=== PATIENT | female | born 1960 | race African-American/Black ===

== ENCOUNTER 2018-11-16 13:37 | Emergency (ER) | payer MEDICAID ==
[~2018-11-16] VITALS: Ht 172.7 cm; Wt 82.0 kg
[2018-11-16] MEDS ORDERED: HYDROCODONE/ACETAMINOPHEN 5/325MG TABLET PO ONE (15:00)
[2018-11-16 15:05] VITALS: BP 129/96
== END 2018-11-16 15:28 | disposition home or self-care (01) ==
LOC: ER 13:37
DX: B02.9 Zoster without complications (principal)
CPT/HCPCS: 99283

== ENCOUNTER 2021-10-24 12:46 | Inpatient (IN) | payer MEDICAID ==
[~2021-10-24] VITALS: Ht 182.9 cm; Wt 115.2 kg
[2021-10-24 17:39] LABS: BASOPHILS % 0.9 % (0.0-2.0); EOSINOPHILS % 1.4 % (0.0-5.0); HEMATOCRIT. 48.5 % (36.0-48.0); HEMOGLOBIN. 15.4 g/dL (12.0-16.0); MEAN CORPUSCULAR HEMOGLOBIN 28.7 pg (28.0-32.0); MEAN CORPUSCULAR VOLUME 90.2 fL (81.0-99.0); MEAN PLATELET VOLUME 9.4 fl (7.4-10.4); MONOCYTES % 6.8 % (2.0-8.0); NEUTROPHILS % 56.9 % (40.0-76.0); PLATELET 255 x1000/uL (130-400); RED BLOOD CELL COUNT 5.38 mill/uL (4.2-5.4); RED CELL DISTRIBUTION WIDTH 14.5 % (11.6-14.6)
[2021-10-24 17:49] LABS: CHLORIDE 96 mEq/L (98-107)
[2021-10-24 17:52] LABS: CLARITY URINE CLEAR (CLEAR); COLOR URINE YELLOW (YELLOW); KETONES URINE TRACE (NEGATIVE); LEUKOCYTE ESTERASE URINE NEGATIVE (NEGATIVE); NITRITE URINE NEGATIVE (NEGATIVE); OCCULT BLOOD URINE TRACE (NEGATIVE); PROTEIN URINE NEGATIVE (NEGATIVE); SPECIFIC GRAVITY URINE 1.042 (1.005-1.030); UROBILINOGEN URINE 0.2 E.U./dL (0.2-1.0)
[2021-10-24 17:57] LABS: ETHANOL BLOOD < 10 mg/dL
[2021-10-24 18:08] LABS: *AMPHETAMINES SCREEN URINE NEGATIVE (NEGATIVE); *BARBITURATES SCREEN URINE NEGATIVE (NEGATIVE); *BENZODIAZEPINES SCREEN URINE NEGATIVE (NEGATIVE); *COCAINE SCREEN URINE NEGATIVE (NEGATIVE); CANNABINOID URINE SCREEN NEGATIVE (NEGATIVE); METHADONE URINE SCREEN NEGATIVE (NEGATIVE); OPIATES URINE SCREEN NEGATIVE (NEGATIVE); PHENCYCLIDINE URINE SCREEN NEGATIVE (NEGATIVE)
[2021-10-24] MEDS ORDERED: INSULIN REGULAR (HUMULIN R) 300UNITS/3ML VIAL SUBCUT NR (21:09)
[2021-10-25] MEDS ORDERED: INSULIN REGULAR (HUMULIN R) 300UNITS/3ML VIAL SUBCUT NR
[2021-10-25] MEDS ORDERED: DEXTROSE 50% WATER 50ML SYRINGE IV PRN (00:15)
[2021-10-25] MEDS: BLOOD SUGAR DIAGNOSTIC STRIP TEST SCH ×4 (06:52→21:13)
[2021-10-25] MEDS: INSULIN LISPRO (MEDIUM DOSE) 100 UNITS/ML SUBCUT SCH ×5 (06:55→21:22)
[2021-10-25] MEDS ORDERED: ONDANSETRON HCL 4MG/2ML INJ IV PRN (09:15)
[2021-10-25] MEDS ORDERED: ACETAMINOPHEN 325MG TABLET PO PRN (09:15)
[2021-10-25] MEDS: INSULIN GLARGINE 100 UNITS/ML SUBCUT SCH ×2 (10:00→22:33)
[2021-10-25 12:00] VITALS: BP 156/85
[2021-10-25 14:14] VITALS: BP 124/71
[2021-10-25 16:20] VITALS: BP 124/71
[2021-10-25 20:00] VITALS: BP 150/94
[2021-10-26] VITALS: BP 123/81
[2021-10-26 04:00] VITALS: BP 140/83
[2021-10-26] MEDS: BLOOD SUGAR DIAGNOSTIC STRIP TEST SCH ×4 (07:20→21:14)
[2021-10-26] MEDS: INSULIN LISPRO (MEDIUM DOSE) 100 UNITS/ML SUBCUT SCH ×5 (07:50→22:59)
[2021-10-26 08:00] VITALS: BP 150/92
[2021-10-26] MEDS: INSULIN GLARGINE 100 UNITS/ML SUBCUT SCH ×2 (10:27→21:15)
[2021-10-26 16:00] VITALS: BP 132/74
[2021-10-26 20:00] VITALS: BP 152/87
[2021-10-26 23:19] LABS: BASOPHILS % 0.7 % (0.0-2.0); CHLORIDE 100 mEq/L (98-107); EOSINOPHILS % 2.6 % (0.0-5.0); HEMATOCRIT. 40.3 % (36.0-48.0); HEMOGLOBIN. 13.2 g/dL (12.0-16.0); MEAN CORPUSCULAR VOLUME 88.1 fL (81.0-99.0); MEAN PLATELET VOLUME 9.6 fl (7.4-10.4); MONOCYTES % 9.5 % (2.0-8.0); NEUTROPHILS % 41.2 % (40.0-76.0); PLATELET 245 x1000/uL (130-400); RED BLOOD CELL COUNT 4.57 mill/uL (4.2-5.4); RED CELL DISTRIBUTION WIDTH 14.4 % (11.6-14.6)
[2021-10-27] MEDS ORDERED: POTASSIUM CHLORIDE 20MEQ TABLET SR PO NR (00:30)
[2021-10-27] MEDS: INSULIN LISPRO (MEDIUM DOSE) 100 UNITS/ML SUBCUT SCH ×3 (06:42→21:24)
[2021-10-27] MEDS: BLOOD SUGAR DIAGNOSTIC STRIP TEST SCH ×4 (07:20→21:25)
[2021-10-27 08:00] VITALS: BP 160/83
[2021-10-27] MEDS ORDERED: INSULIN GLARGINE 100 UNITS/ML SUBCUT SCH (10:00)
[2021-10-27] MEDS: INSULIN GLARGINE 100 UNITS/ML SUBCUT SCH ×2 (10:30→21:23)
[2021-10-27 12:00] VITALS: BP 147/72
[2021-10-27] MEDS: INSULIN LISPRO 100 UNITS/ML SUBCUT SCH ×2 (12:49→17:51)
[2021-10-27 16:00] VITALS: BP 154/71
[2021-10-27 20:00] VITALS: BP 128/79
[2021-10-28] MEDS: INSULIN LISPRO 100 UNITS/ML SUBCUT SCH ×2 (06:31→12:20)
[2021-10-28] MEDS: BLOOD SUGAR DIAGNOSTIC STRIP TEST SCH ×2 (07:20→12:20)
[2021-10-28 08:00] VITALS: BP 155/91
[2021-10-28] MEDS: INSULIN GLARGINE 100 UNITS/ML SUBCUT SCH (09:41)
[2021-10-28] MEDS ORDERED: LANTUSUD SUBCUT (11:01)
[2021-10-28] MEDS ORDERED: LANC-493 TP (11:01)
[2021-10-28] MEDS ORDERED: BLOO-1465 MT (11:01)
[2021-10-28] MEDS ORDERED: INSLIS SUBCUT (11:01)
[2021-10-28 12:00] VITALS: BP 147/82
[2021-10-28] MEDS: INSULIN LISPRO (MEDIUM DOSE) 100 UNITS/ML SUBCUT SCH (12:50)
[2021-10-28 13:18] VITALS: BP 155/91
[2021-10-28 16:00] VITALS: BP 145/88
== END 2021-10-28 17:05 | disposition home or self-care (01) | DRG 420 ==
LOC: ER 12:46 → MICUSO 21:41 → ENRESERV 22:34 → 6EST 10-25 12:21
PROVIDERS: ADMIT Internal Medicine; ATTEND Internal Medicine
DX: E11.65 Type 2 diabetes mellitus with hyperglycemia (principal); E87.8 Other disorders of electrolyte and fluid balance, not elsewhere classified; E87.1 Hypo-osmolality and hyponatremia; E66.9 Obesity, unspecified; E78.00 Pure hypercholesterolemia, unspecified; I10 Essential (primary) hypertension; Z68.34 Body mass index [BMI] 34.0-34.9, adult; Z71.3 Dietary counseling and surveillance; Z82.49 Family history of ischemic heart disease and other diseases of the circulatory system
CPT/HCPCS: 36415; 80048; 80053; 80305; 80307; 80320; 80329; 81003; 82962; 83036; 85025; 99285; J1815; G0480

== ENCOUNTER 2021-10-30 13:44 | Emergency (ER) | payer MEDICAID ==
[~2021-10-30] VITALS: Ht 170.2 cm; Wt 113.0 kg
[~2021-10-30 13:44] MED LIST: BLOO-1465 MT; INSLIS SUBCUT; LANC-493 TP; LANTUSUD SUBCUT
[2021-10-30] MEDS ORDERED: KETOROLAC 30MG/ML VIAL IV STA (14:18)
[2021-10-30] MEDS ORDERED: SODIUM CHLORIDE 0.9% 1,000 ML IV ONE (14:30)
[2021-10-30 14:44] LABS: BASOPHILS % 0.8 % (0.0-2.0); EOSINOPHILS % 1.8 % (0.0-5.0); HEMOGLOBIN. 13.8 g/dL (12.0-16.0); LYMPHOCYTES % 40.9 % (20.0-50.0); MEAN CORPUSCULAR VOLUME 90.3 fL (81.0-99.0); MEAN PLATELET VOLUME 10.1 fl (7.4-10.4); MONOCYTES % 10.3 % (2.0-8.0); NEUTROPHILS % 46.2 % (40.0-76.0); PLATELET 172 x1000/uL (130-400); RED BLOOD CELL COUNT 4.76 mill/uL (4.2-5.4); RED CELL DISTRIBUTION WIDTH 14.6 % (11.6-14.6)
[2021-10-30 14:52] LABS: CHLORIDE 101 mEq/L (98-107)
[2021-10-30 14:54] LABS: PROTHROMBIN TIME 10.4 sec (9.6-11.0)
[2021-10-30] MEDS ORDERED: KETOROLAC 30MG/ML VIAL IV NR (16:15)
[2021-10-30] MEDS ORDERED: METO-293 MT (19:38)
[2021-10-30 20:30] VITALS: BP 129/88
== END 2021-10-30 22:19 | disposition home or self-care (01) ==
LOC: ER 13:44
DX: K85.90 Acute pancreatitis without necrosis or infection, unspecified (principal); E11.9 Type 2 diabetes mellitus without complications; I10 Essential (primary) hypertension
CPT/HCPCS: 36415; 74176; 80053; 83690; 85025; 85610; 96361; 96374; 99284; J1885; J7030